=== PATIENT | female | born 1960 | race Two or more races ===

== ENCOUNTER 2022-12-10 14:08 | Emergency (ER) | payer OTHER ==
[~2022-12-10] VITALS: Ht 162.6 cm; Wt 58.3 kg
[2022-12-10 14:36] VITALS: BP 122/81; PULSE 87; RESP 18; O2SAT 95
== END 2022-12-10 21:57 | disposition left against medical advice (07) ==
LOC: ER 14:08
DX: M25.561 Pain in right knee (principal); M79.89 Other specified soft tissue disorders; Z53.21 Procedure and treatment not carried out due to patient leaving prior to being seen by health care provider